=== PATIENT | female | born 1955 | race Two or more races ===

== ENCOUNTER 2021-09-09 05:45 | Day surgery (SDC) | payer OTHER ==
[2021-09-09] MEDS ORDERED: IBU600 MG PO (08:21)
== END 2021-09-09 12:50 | disposition home or self-care (01) ==
LOC: CIR.AMB 05:45
PROVIDERS: ATTEND Obstetrics & Gynecology Gynecology
DX: C54.1 Malignant neoplasm of endometrium (principal); Z20.822 Contact with and (suspected) exposure to COVID-19

== ENCOUNTER 2021-10-09 05:55 | Day surgery (SDC) | payer OTHER ==
[~2021-10-09 05:55] MED LIST: IBU600 MG PO
== END 2021-10-09 10:20 | disposition home or self-care (01) ==
LOC: AMB-ENDOS 05:55
PROVIDERS: ATTEND Internal Medicine Gastroenterology
DX: K62.89 Other specified diseases of anus and rectum (principal)

== ENCOUNTER 2021-10-29 07:30 | Inpatient (IN) | payer OTHER ==
[~2021-10-29] VITALS: Ht 165.1 cm; Wt 53.5 kg
== END 2021-11-01 11:05 | disposition home or self-care (01) | DRG 741 ==
LOC: OB/GYN 10-31 05:55 → O/R 10-31 05:55 → SURH 10-31 07:30 → OB/GYN 10-31 11:32
PROVIDERS: ADMIT Obstetrics & Gynecology Gynecologic Oncology; ATTEND Obstetrics & Gynecology Gynecologic Oncology
PROC: 0UT24ZZ Resection of Bilateral Ovaries, Percutaneous Endoscopic Approach (ICD-10-PCS; 2021-10-31)
PROC: 0UT74ZZ Resection of Bilateral Fallopian Tubes, Percutaneous Endoscopic Approach (ICD-10-PCS; 2021-10-31)
PROC: 07BC4ZZ Excision of Pelvis Lymphatic, Percutaneous Endoscopic Approach (ICD-10-PCS; 2021-10-31)
PROC: 0UT94ZZ Resection of Uterus, Percutaneous Endoscopic Approach (ICD-10-PCS; principal; 2021-10-31 09:45)
DX: C54.1 Malignant neoplasm of endometrium (principal)